=== PATIENT | male | born 1945 | race Caucasian/White ===

== ENCOUNTER → 2016-10-20 | Outpatient (CLI) | payer MEDICARE, OTHER ==
--- NOTE | ~2016-10-20 | CR91 ---
[facility] A Service of [facility] & [facility] RADIOLOGY TEXT RESULTS PATIENT: APOLINAR KEY LOCATION: [facility] : 43 UNIT #: [id number] AGE: [address]: Esperanza Amezquita MD SEX: M ORDER DR: [id number] [facility] [address] [place] [address] [place], [place] [address] [id number] O MR#: [id number] Acc #: [id number] NAME: APOLINAR KEY : 1945 SEX: M STUDY DATE/TIME: 10/20/2016 13:25 UNIT: [facility] ROOM: STUDY DESCRIPTION: CR Elbow 2 View Rt Attending Physician: Esperanza Amezquita M.D. Ordering Physician: Esperanza Amezquita M.D. Primary Care Physician: Primary Care Physician No MEDICAL IMAGING REPORT This report is preliminary unless electronic signature is present EXAM Right elbow INDICATION Right elbow pain since yesterday. FINDINGS The patient was not cooperative so the images are not in the optimal position. This is an AP and slightly oblique view of the elbow. There is no visible fracture or dislocation. IMPRESSION The exam is slightly limited by poor positioning due to the patient's inability to cooperate. No abnormalities are identified. Dictated by... Efrain Mccullough M.D. THIS IS AN ELECTRONICALLY VERIFIED REPORT Efrain Mccullough M.D. at 10/21/2016 4:04 PM CHACORTA/fabricio TD: 10/21/2016 08:18 JOB #: [id number] MEDICAL IMAGING REPORT Page 1 of 1 COPY
--- NOTE | ~2016-10-20 | CR230 ---
[facility] A Service of [facility] & [facility] RADIOLOGY TEXT RESULTS PATIENT: APOLINAR KEY LOCATION: [facility] : 43 UNIT #: [id number] AGE: [address]: Esperanza Amezquita MD SEX: M ORDER DR: [id number] [facility] [address] [place], [place] [address] [id number] O MR#: [id number] Acc #: [id number] NAME: APOLINAR KEY : 1945 SEX: M STUDY DATE/TIME: 10/20/2016 13:25 UNIT: [facility] ROOM: STUDY DESCRIPTION: CR Shoulder Min 2 View Rt Attending Physician: Esperanza Amezquita M.D. Ordering Physician: Esperanza Amezquita M.D. Primary Care Physician: Primary Care Physician No MEDICAL IMAGING REPORT This report is preliminary unless electronic signature is present EXAM Right shoulder INDICATION Right shoulder pain since yesterday. FINDINGS Internal and external rotated views of the right shoulder were obtained. There is narrowing of the acromial humeral space suggesting rotator cuff tear. There is no fracture or dislocation. IMPRESSION Narrowed acromial humeral space suggesting rotator cuff tear. Otherwise normal. Dictated by... Efrain Mccullough M.D. THIS IS AN ELECTRONICALLY VERIFIED REPORT Efrain Mccullough M.D. at 10/21/2016 4:04 PM Jane TD: 10/21/2016 08:24 JOB #: [id number] MEDICAL IMAGING REPORT Page 1 of 1 COPY
== END | disposition home or self-care (01) ==
LOC: CRAD 12:47
DX: M25.511 Pain in right shoulder (principal); M25.521 Pain in right elbow; M25.811 Other specified joint disorders, right shoulder
CPT/HCPCS: 73030; 73070